=== PATIENT | female | born 1955 | race Caucasian/White ===

== ENCOUNTER → 2016-05-27 | Outpatient (CLI) | payer BC ==
[~2016-05-27] MED LIST: LEVO75TA5 PO; NIAC500T11 PO; OMEG10007 PO; REDCAP2 PO
--- NOTE | 2016-05-29 08:27 | MAMMOGRAPHY REPORT ---
BILATERAL DIGITAL DIAGNOSTIC MAMMOGRAM TOMOSYNTHESIS WITH CAD: 05/27/2016 CLINICAL HISTORY: 61-year-old woman who presents for annual bilateral mammography. 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 S he reports intermittent spontaneous and nonspontaneous clear nipple discharge since at least December 10. TECHNIQUE: Bilateral CC and MLO 2-D digital and tomosynthesis images, standard 2-D X CCL views of e ach breast were obtained. COMPARISON: Comparison is made to exams dated: 02/13/2015 mammogram, 02/13/2015 MRI biopsy, 01/22/2015 ultrasound, 01/01/2015 breast MRI, and 12/21/2014 ultrasound - [facility]. BREAST COMPOSITION: There are scattered areas of fibroglandular density in both breasts. FINDINGS: There are benign coarse calcifications and a stable metallic biopsy marker within the left breast. Stable nodularity anteriorly within each breast as well as benign-appearing grouped puncta te microcalcifications. No new suspicious mass, architectural distortion or cluster of new, suspici ous microcalcifications is seen. IMPRESSION: ACR BI-RADS CATEGORY 2: BENIGN Stable mammographic appearance of the breasts, without mammographic evidence of malignancy. Given t hat the patient's bilateral spontaneous and nonspontaneous nipple discharge has been persistent for over a year and a half and there is no significant abnormality seen mammographically, this may be be nign. However, continued monitoring is recommended and if there is any change in the frequency or c olor of the discharge, she should return for additional workup. Otherwise, recommend follow-up at t mary of next annual screening mammogram. These results and recommendations were discussed with the patient at the time of the exam. Approximately 10% of breast cancers are not detected with mammography. A negative mammographic repor t should not delay biopsy if a clinically suggestive mass is present. Fatoumata Balbuena M.D. ay/:05/27/2016 09:33:26 [place] Burnisher: Carrie HIRSCH)(Kris), [facility] letter sent: Normal 1/2 BI-RADS Code: ACR BI-RADS Category 2: Benign
== END | disposition home or self-care (01) ==
LOC: C.MAMM 08:24
PROVIDERS: ATTEND Obstetrics & Gynecology
DX: D24.9 Benign neoplasm of unspecified breast (principal); N64.52 Nipple discharge

== ENCOUNTER → 2017-02-12 | Outpatient (CLI) | payer BC | END | disposition home or self-care (01) | LOC: C.LAB1850 15:28 | PROVIDERS: ATTEND Internal Medicine | DX: Z11.59 Encounter for screening for other viral diseases (principal); E03.9 Hypothyroidism, unspecified ==

== ENCOUNTER → 2017-06-09 | Outpatient (CLI) | payer BC ==
--- NOTE | 2017-06-09 15:10 | MAMMOGRAPHY REPORT ---
BILATERAL DIGITAL DIAGNOSTIC MAMMOGRAM TOMOSYNTHESIS WITH CAD AND TARGETED BILATERAL ULTRASOUND: 06/09 CLINICAL HISTORY: The patient has had bilateral clear nipple discharge which was worked up in 2014. She had a benign MRI guided biopsy of the left breast and had a right breast papilloma diagnosed at s urgical excision. The patient reports continued bilateral clear nipple discharge, right greater than left. She denies any bloody nipple discharge, palpable lumps, or other new complaints. TECHNIQUE: Breast tomosynthesis in addition to standard 2D mammography was performed. Current study was also evaluated with a Computer Aided Detection (CAD) system. Bilateral CC and MLO 2-D and tomosy nthesis images and bilateral spot magnification CC and ML views of the subareolar regions were obtain ed. COMPARISON: Comparison is made to exams dated: 05/27/2016 mammogram, 12/21/2014 mammogram, 12/21/2014 ul trasound, 12/20/2013 mammogram, 12/19/2012 mammogram, and 12/14/2011 mammogram - [facility] enter. BREAST COMPOSITION: There are scattered areas of fibroglandular density in both breasts. FINDINGS: There are no suspicious masses, calcifications, or areas of architectural distortion noted in either breast. There has been no significant interval change compared to prior exams. Nodularity throughout bilateral anterior breast and bilateral benign-appearing calcifications are not significa ntly changed compared to multiple prior exams. A biopsy marker clip is again noted within the left 6 :00 breast. Targeted ultrasound was performed of bilateral subareolar regions. Again noted are multiple anechoic and hypoechoic masses as well as prominent ducts with internal hypoechoic material. In the left sub areolar upper outer quadrant there is a round circumscribed anechoic cyst measuring 4 mm a mildly dil ated duct with internal hypoechoic material measuring 7 mm is seen within the left upper inner subare olar breast. An anechoic benign 4 mm cyst is also seen within the upper inner subareolar breast. A mixed hypoechoic and anechoic 7 x 8 mm mass is seen within the left 6:00 subareolar breast. A few pu nctate echogenic foci are seen within the mass, consistent with calcifications. The mass and calcifi cations are stable mammographically compared to multiple prior exams and is therefore considered ismael gn. 2 adjacent anechoic masses with internal calcifications are seen within the left 6:00 subareolar breast anteriorly, which correspond with stable mammographic findings. The findings appear stable t o prior mammograms as well as prior ultrasound dated 12/21/2014. No new masses are seen. In the right subareolar breast, a few prominent ducts are seen, without evidence of a clear intraduct al mass or other suspicious finding. Given the presence of multiple masses and dilated ducts bilater ally, the sensitivity of the ultrasound exam for detection of an intraductal mass is decreased. IMPRESSION: ACR BI-RADS CATEGORY 2: BENIGN, TARGETED ULTRASOUND ACR BI-RADS CATEGORY 2: BENIGN Overall stable exam including stable nodularity and calcifications bilaterally. No clear etiology fo r bilateral nipple discharge is evident, however, the sensitivity of the ultrasound exam for detectio n of an intraductal mass is reduced given the presence of multiple masses and dilated ducts. There is no mammographic or targeted sonographic evidence of malignancy. Recommend clinical follow-up; if fi ndings are clinically suspicious and/or further workup is desired, consider bilateral breast MRI or s urgical consultation for possible duct excision. Also recommend routine bilateral screening mammogra ms in one year. The patient has been verbally notified of the results. Approximately 10% of breast cancers are not detected with mammography. A negative mammographic report should not delay biopsy if a clinically suggestive mass is present. Lynda Box M.D. ah/:06/09/2017 10:50:53 [employer] Grinder: Chaparrita HIRSCH)(Kris), [facility] letter sent: Normal 1/2 BI-RADS Code: ACR BI-RADS Category 2: Benign Ultrasound BI-RADS: ACR BI-RADS Category 2: Benign
== END | disposition home or self-care (01) ==
LOC: C.MAMM 08:51
PROVIDERS: ATTEND Obstetrics & Gynecology
DX: N64.52 Nipple discharge (principal); R92.1 Mammographic calcification found on diagnostic imaging of breast